=== PATIENT | female | born 1960 | race Caucasian/White ===

== ENCOUNTER 2018-04-13 09:27 | Outpatient (CLI) | payer BC ==
--- NOTE | 2018-04-13 13:49 | MRI ---
MRI RIGHT KNEE PERFORMED WITHOUT CONTRAST ENHANCEMENT: HISTORY: Medial knee pain. FINDINGS: The patient states the knee locks up on her, and she is unable to completely straighten her knee. Th e anterior as well as posterior cruciate ligaments are intact. The medial and lateral menisci have a normal shape and appearance. The medial and lateral collateral ligaments and the iliotibial band regions are unremarkable. There is a 12 to 13 mm articular body, which is directly anterior to the tibial attachment of the ACL and adjacent to Hoffa's fat pad with some edema change in adjacent Hoffa's fat. There is some articular cartilage fissuring of the patellar articular cartilage. The medial and late ral patellar retinaculum, as well as the quadriceps tendon, are normal. There is some minimal patell ar tendinosis noted. IMPRESSION: A 13 mm intraarticular body, seen directly anterior to the tibial insertion of the anterior cruciate ligament, associated with the Hoffa's fat pad with edema change in the Hoffa's fat pad. The two main considerations for this is does this represent some type of osteochondral body, although its signal characteristics are not entirely typical? It could represent an area of nodular synovitis, and assoc iated with adjacent edema changes within Hoffa's fat. It would probably be related to the patient's difficulty in extending or straightening her leg. POS: [facility]
== END 2018-04-13 09:28 | disposition home or self-care (01) ==
LOC: BICMRI 09:27
PROVIDERS: ATTEND Family Medicine
DX: Z12.31 Encounter for screening mammogram for malignant neoplasm of breast (principal); M23.91 Unspecified internal derangement of right knee; M25.561 Pain in right knee; R60.0 Localized edema
CPT/HCPCS: 77063; 77067

== ENCOUNTER 2018-05-08 16:37 | Outpatient (CLI) | payer BC ==
[2018-05-08 17:32] LABS: #Eosinphils 0.1 thou/uL (0.0-0.7); #Lymphocytes 1.5 thou/uL (1.20-3.40); #Monocytes 0.4 thou/uL (0.11-0.59); #Neutrophils 3.4 thou/uL (1.40-6.50); %Basophils 0.6 % (0.0-1.0); %Eosinophils 2.4 % (0.0-10.0); %Lymphocytes 26.9 % (21.0-51.0); %Monocytes 7.5 % (0.0-10.0); %Neutrophils 62.7 % (42.0-75.0); Hemoglobin 15.7 g/dL (12.0-16.0); Mean Corpuscular HGB CONC 31.9 g/dL (32.0-36.0); Mean Corpuscular Hemoglobin 28.4 pg (27.0-31.0); Mean Corpuscular Volume 89.2 fL (78.0-98.0); Mean Platelet Volume 8.1 fL (7.4-10.4); Platelet Count 280 thou/uL (130-400); RBC Distribution Width 11.6 % (11.5-14.5); Red Blood Cell (RBC) Count 5.54 mill/uL (4.20-5.40); White Blood Cell (WBC) Count 5.5 thou/uL (4.8-10.8)
[2018-05-08 18:01] LABS: Anion Gap 11 mmol/L (10-20); BUN (Urea Nitrogen) 13 mg/dL (9.8-20.1); Calc. Creatinine Clearance 0 mL/min (70-130); Calcium 9.8 mg/dL (7.8-10.44); Carbon Dioxide 27 mmol/L (22-29); Chloride 106 mmol/L (98-107); Estimated GFR-MDRD 73; Glucose 96 mg/dL (70-105); Potassium 3.9 mmol/L (3.5-5.1); Sodium 140 mmol/L (136-145)
== END 2018-05-08 16:38 | disposition home or self-care (01) ==
LOC: LABBT 16:37
PROVIDERS: ATTEND Orthopaedic Surgery
DX: Z01.818 Encounter for other preprocedural examination (principal); M23.41 Loose body in knee, right knee
CPT/HCPCS: 80048; 85025; 93005; 93010

== ENCOUNTER 2018-05-10 06:02 | Day surgery (SDC) | payer BC ==
[2018-05-08 16:54] VITALS: BMI 30.7
[2018-05-10] MEDS ORDERED: CEFAZOLIN 2 GM/50 ML BAG ONE (06:39)
[2018-05-10] MEDS ORDERED: Fentanyl 100 MCG/2 ML VIAL ONE (06:44)
[2018-05-10] MEDS ORDERED: Propofol 500 MG/50 ML VIAL ONE (07:00)
[2018-05-10] MEDS ORDERED: PROPOFOL 20 ML ONE ×2 (07:02→07:03)
[2018-05-10] MEDS ORDERED: Midazolam HCl 2 mg/2 ml Vial ONE (07:44)
--- NOTE | 2018-05-10 08:42 | OP ---
DATE OF PROCEDURE: 05/10/2018 PREOPERATIVE DIAGNOSIS: Right knee loose body anterior to the anterior cruciate ligament. POSTOPERATIVE DIAGNOSIS: Right knee loose body anterior to the anterior cruciate ligament. PROCEDURE PERFORMED: Right knee arthroscopy with removal of loose body. SURGEON: Jose Mariee M.D. OFFENDER JOB RETENTION SPECIALIST: None. BLOOD LOSS: Minimal. COMPLICATIONS: None. ANESTHESIA: She had general anesthetic as well as a local knee block. CONDITION: She went to recovery room in stable condition. INDICATIONS: This is a 58-year-old active female who comes in complaining of occasional pinching and catching in her knee and subsequent swelling. MRI scan showed her to have a loose body in the anter ior portion of the knee and at this time, she wished to have this surgically removed. DESCRIPTION OF PROCEDURE: After all appropriate consent forms were explained and signed, she was graham en back to the operating room and at this time was given general anesthetic. Once the level of anest hesia was appropriate, the tourniquet was placed on the right thigh. Leg was placed in an arthroscop ic leg cline. The limb was then prepped and draped in the standard surgical fashion. An inferolate ral portal was established and the scope was placed into the knee joint. Needle localization technAllylix ue was then used for medial working portal. Diagnostic arthroscopy commenced in the knee. The ACL a nd PCL were probed and found to be intact. The loose body was found anteriorly in the fat pad. The fat pad was debrided. Grasper was used to remove the loose body. There was a large gush of hematoma , which came out. This was cleaned out and the shaver was used to smooth down the bone on the end of the tibia. At this time, we started our normal knee arthroscopy. Medial compartment was evaluated and found to be intact, so was the lateral compartment. The patellofemoral joint showed the trochlea to be in good condition. There was a small amount of fissuring in the superior lateral portion of t he patella. There were no more loose bodies noted in the suprapatellar pouch or either gutter. At t his time, we went around the knee one more time making sure there were no more loose bodies. Scope w as then removed. Knee was drained. Portals were closed with simple nylon stitch. Bulky sterile yue ssing was applied and the tourniquet let down. Toes pinked up nicely. The patient was awakened. Kim mayfield was taken to the recovery room in stable condition. All counts were correct at the end of the case . She received preoperative IV antibiotics.
[2018-05-10] MEDS ORDERED: Metoclopramide HCl 10 MG/2 ML VIAL ONE (10:08)
[2018-05-10] MEDS ORDERED: Ketorolac Tromethamine 30 MG/ML VIAL ONE (10:08)
[2018-05-10] MEDS ORDERED: Ondansetron PF 4 MG/2 ML Vial ONE (10:08)
[2018-05-10] MEDS ORDERED: PROPOFOL 200 MG/20 ML VIAL ONE (10:08)
[2018-05-10] MEDS ORDERED: Dexamethasone 20 MG/5 ML VIAL ONE (10:08)
[2018-05-10] MEDS ORDERED: Lidocaine 1% PF 5 ML VIAL ONE (10:08)
[2018-05-10] MEDS ORDERED: Lidocaine 2% w/Epinephrine 1:200K 20 ML VIAL ONE (13:23)
[2018-05-10] MEDS ORDERED: Bupivacaine HCl 0.5%/Epinephrine 1:200,000/PF 30 ml Vial ONE (13:23)
== END 2018-05-10 10:30 | disposition home or self-care (01) ==
LOC: SDC 06:02
PROVIDERS: ATTEND Orthopaedic Surgery
PROC: 0SCC4ZZ Extirpation of Matter from Right Knee Joint, Percutaneous Endoscopic Approach (ICD-10-PCS; principal; 2018-05-10)
PROC: 0SBC4ZZ Excision of Right Knee Joint, Percutaneous Endoscopic Approach (ICD-10-PCS; 2018-05-10)
DX: M23.41 Loose body in knee, right knee (principal); E03.9 Hypothyroidism, unspecified; Z79.1 Long term (current) use of non-steroidal anti-inflammatories (NSAID); Z79.899 Other long term (current) drug therapy
CPT/HCPCS: G8978-GP-CJ; G8979-GP-CJ; G8980-GP-CJ; J0670; J1100; J1885; J2001; J2250; J2405; J2704; J2765; J3010

== ENCOUNTER 2018-06-08 12:29 | Outpatient (CLI) | payer BC | END 2018-06-08 12:30 | disposition home or self-care (01) | PROVIDERS: ATTEND Physician Assistant | DX: R06.02 Shortness of breath (principal) | CPT/HCPCS: 93017 ==

== ENCOUNTER 2018-09-16 00:39 | Emergency (ER) | payer BC ==
[2018-09-16 01:19] LABS: #Basophils 0.1 thou/uL (0.0-0.2); #Eosinphils 0.2 thou/uL (0.0-0.7); #Lymphocytes 2.2 thou/uL (1.20-3.40); #Monocytes 0.6 thou/uL (0.11-0.59); #Neutrophils 4.2 thou/uL (1.40-6.50); %Basophils 1.2 % (0.0-1.0); %Eosinophils 2.5 % (0.0-10.0); %Lymphocytes 30.1 % (21.0-51.0); %Monocytes 8.2 % (0.0-10.0); %Neutrophils 58.1 % (42.0-75.0); Hemoglobin 15.7 g/dL (12.0-16.0); Mean Corpuscular HGB CONC 33.3 g/dL (32.0-36.0); Mean Platelet Volume 8.5 fL (7.4-10.4); Platelet Count 247 thou/uL (130-400); RBC Distribution Width 11.8 % (11.5-14.5); Red Blood Cell (RBC) Count 5.24 mill/uL (4.20-5.40); White Blood Cell (WBC) Count 7.2 thou/uL (4.8-10.8)
[2018-09-16 01:20] LABS: Bilirubin Negative (Negative); Blood, Urine Large (Negative); Clarity CLOUDY (Clear); Glucose, Urine (Dipstick) Negative (Negative); Leukocyte Negative (Negative); Nitrite Negative (Negative); Protein, Urine (Dipstick) Trace mg/dL (Neg-Trace); Specific Gravity, Urine 1.025 (1.002-1.036); Urobilinogen 0.2 mg/dL (0.2-1.0); pH, Urine 5.5 (5.0-9.0)
[2018-09-16 01:22] LABS: Bacteria/HPF Rare-Few HPF (None Seen); Pathc Cast-AUWi Flag 1.36 (0-2.49)
[2018-09-16 01:27] LABS: Yeast-AUWi Flag 71.6 (0-25.0)
[2018-09-16 01:36] LABS: Renal Epithelial None Seen HPF (0-3); Transitional Epithelial NONE SEEN HPF (0-3)
[2018-09-16 01:37] LABS: Hyaline Casts/LPF NONE SEEN LPF (0-3 Hyaline); Yeast-All Forms None Seen HPF (None Seen)
[2018-09-16 01:41] LABS: ALT (SGPT) 31 U/L (8-55); AST (SGOT) 19 U/L (5-34); Albumin 4.5 g/dL (3.5-5.0); Alkaline Phosphatase 139 U/L (40-150); Anion Gap 14 mmol/L (10-20); BUN (Urea Nitrogen) 15 mg/dL (9.8-20.1); Bilirubin, Total 0.7 mg/dL (0.2-1.2); Calc. Creatinine Clearance 0 mL/min (70-130); Calcium 10.2 mg/dL (7.8-10.44); Carbon Dioxide 27 mmol/L (22-29); Chloride 107 mmol/L (98-107); Estimated GFR-MDRD 67; Globulin 2.6 g/dL (2.4-3.5); Glucose 130 mg/dL (70-105); Potassium 3.7 mmol/L (3.5-5.1); Protein, Total 7.1 g/dL (6.0-8.3); Sodium 144 mmol/L (136-145)
[2018-09-16] MEDS ORDERED: Ondansetron PF 4 MG/2 ML Vial ONE (01:43)
[2018-09-16] MEDS ORDERED: Ketorolac Tromethamine 30 MG/ML VIAL ONE (01:43)
[2018-09-16] MEDS ORDERED: Morphine 4 MG/ML VIAL ONE (02:53)
--- NOTE | 2018-09-16 08:07 | CT ---
CT ABDOMEN AND PELVIS NONCONTRAST: Date 09/16/18 INDICATION: Right flank pain, progressive in intensity. History of urolithiasis and dysuria. FINDINGS: Evidence of herniorrhaphy is seen at the right mid to lower abdomen. There is patchy, heterogeneous d ensity of the liver, which may be related to geographic areas of hepatic steatosis. At the right UVJ, a 3-4 mm calculus results in mild right hydroureteronephrosis with slight perinephric and periureter al inflammatory fat stranding. Nonobstructive left nephrolithiasis is present. There is colonic diver ticulosis. No significant pathology at the visualized lung bases. No acute osseous abnormalities. The re is a moderate sized hiatal hernia. Evaluation otherwise limited on the basis of noncontrast techni que. IMPRESSION: 1. Mildly obstructing 3-4 mm right UVJ calculus. 2. Nonobstructing left nephrolithiasis. 3. Probable hepatic steatosis, although incompletely assessed. Correlate with liver function enzymes and, if necessary, follow-up pre and postcontrast CT of abdomen may be obtained for further assessme nt. 4. Moderate sized hiatal hernia. POS: [facility]
== END 2018-09-16 04:16 | disposition home or self-care (01) ==
LOC: ERS 00:39
DX: N13.2 Hydronephrosis with renal and ureteral calculous obstruction (principal); E03.9 Hypothyroidism, unspecified; F32.9 Major depressive disorder, single episode, unspecified; Z79.899 Other long term (current) drug therapy
CPT/HCPCS: 74176; 80053; 81003; 81015; 85025; 96361; 96374; 96375; J1885; J2270; J2405

== ENCOUNTER 2018-09-27 06:58 | Day surgery (SDC) | payer BC ==
[2018-09-25 12:59] VITALS: BMI 32.9
[2018-09-27] MEDS ORDERED: Levofloxacin 500 mg/D5W 100 ml Premix Bag ONE (07:51)
--- NOTE | 2018-09-27 07:54 | RAD ---
XR Abdomen 1 View/KUB History: [Preop] Comparison: CT abdomen pelvis September 16, 2018 Findings: Evidence of prior ventral hernia repair. No dilated air-filled loops of large or small hamlet l. No definite calcifications are seen projecting over the renal shadows. Moderate facet arthrosis L4-5 and L5-S1. No dilated loops of large or small bowel. Impression: No definite nephrolithiasis is appreciated on this exam
[2018-09-27 08:23] LABS: INR-International Normal Ratio 0.9; PTT 28.2 SEC (22.9-36.1); Prothrombin Time 12.2 SEC (12.0-14.7)
[2018-09-27] MEDS ORDERED: Fentanyl 100 MCG/2 ML VIAL ONE ×3 (09:30→11:42)
[2018-09-27] MEDS ORDERED: Midazolam HCl 2 mg/2 ml Vial ONE (09:45)
[2018-09-27] MEDS ORDERED: Iothalamate Meglumine 60% 50 ML VIAL FS ONE (09:50)
[2018-09-27] MEDS ORDERED: SUGAMMADEX SODIUM 200 MG/2 ML VIAL ONE (10:32)
--- NOTE | 2018-09-27 10:57 | RAD ---
Exam: Intraoperative fluoroscopy for retrograde IVP COMPARISON: None HISTORY: Ureteral calculus FINDINGS: Single fluoroscopic view demonstrates a right-sided double-J stent which appears to be appr opriately positioned IMPRESSION: Fluoroscopy as above
[2018-09-27] MEDS ORDERED: Oxybutynin 5 MG TAB ONE (12:22)
[2018-09-27] MEDS ORDERED: Phenazopyridine HCl 97.5 MG TABLET ONE (12:22)
[2018-09-27] MEDS ORDERED: Morphine 4 MG/ML VIAL ONE (12:57)
[2018-09-27] MEDS ORDERED: Ketorolac Tromethamine 30 MG/ML VIAL ONE (13:03)
[2018-09-27] MEDS ORDERED: Morphine 2 MG/ML SYRINGE ONE (13:11)
[2018-09-27] MEDS ORDERED: Hyoscyamine Sulfate SL 0.125 mg Tablet SL SCH (13:15)
[2018-09-27] MEDS ORDERED: Hyoscyamine Sulfate SL 0.125 mg Tablet ONE ×2 (13:42)
[2018-09-27] MEDS ORDERED: HYDROcodone/Acetaminophen 5/325 mg Tablet ONE (14:30)
[2018-09-27] MEDS ORDERED: Glycopyrrolate 0.2 MG/ML 5 ML SYRINGE ONE (14:48)
[2018-09-27] MEDS ORDERED: Lidocaine 1% PF 5 ML VIAL ONE (14:48)
[2018-09-27] MEDS ORDERED: Rocuronium Bromide 10 MG/ML (10ML VIAL) ONE (14:48)
[2018-09-27] MEDS ORDERED: PROPOFOL 200 MG/20 ML VIAL ONE (14:48)
[2018-09-27] MEDS ORDERED: Dexamethasone 20 MG/5 ML VIAL ONE (14:48)
[2018-09-27] MEDS ORDERED: Ondansetron PF 4 MG/2 ML Vial ONE (14:48)
--- NOTE | 2018-09-27 17:22 | OP ---
DATE OF PROCEDURE: 09/27/2018 PREOPERATIVE DIAGNOSES: 1. A 58-year-old female, presented with right UVJ stone with non-progression persistent pain, 4 mm. 2. Left punctate nephrolithiasis. POSTOPERATIVE DIAGNOSES: 1. A 58-year-old female, presented with right UVJ stone with non-progression persistent pain, 4 mm. 2. Left punctate nephrolithiasis. PROCEDURES PERFORMED: Cystoscopy, right retrograde pyelogram, 6 x 26 double-J ureteral stent on Dangler, diagnostic ureteroscopy. ANESTHESIA: LMA, general. COMPLICATIONS: None apparent. DISPOSITION: To recovery room in stable condition. SPECIMEN: None. INTRAOPERATIVE FINDINGS: No evidence of right ureteral calculi. INDICATIONS FOR PROCEDURE AND HISTORY: Ms. Gates is a 58-year-old female, who presented to my office as a work-in and as she presented with persistent discomfort of a right UVJ stone. The pain began approximately two weeks ago, characterized as pressure-like sensation in the lower quadrant, which is difficulty sitting still. Her urine culture and renal function, stable. Due to persistent stone, she desired to proceed with ureteroscopy, laser lithotripsy, and stone extraction. Risks and complications of procedure were reviewed with her in detail including, but are not limited to, bleeding, pain, infection, injury to adjacent organs, urosepsis, stricture formation. All questions were answered to her satisfaction. She desired to proceed. DESCRIPTION OF PROCEDURE: After an informed consent was signed, the patient was taken to the operating room, placed in the dorsal lithotomy position with the genital area prepped and draped in the usual surgical sterile fashion. A 21- Indonesian cystoscope was utilized for cystoscopy. Upon entering the bladder, I did not visualize any past stone debris. Bilateral UOs are located in normal orthotopic position. At this time, we performed the retrograde pyelogram, which I did not see any evidence of hydronephrosis nor obvious filling defect of concern. To ensure that she does not have persistent stone nidus that she continues to have, irritative voiding symptoms of frequency and urgency, a diagnostic ureteroscopy was performed. A 0.35 Sensor wire was passed into the right upper pole and a rigid ureteroscope was able to be passed atraumatically without significant issues. The scope was passed to the level of the mid ureter and I did not see any stone nidus of concern. At this time, a 6 x 26 double-J ureteral stent was passed on a . She tolerated the procedure well and wire was removed. The bladder completely emptied. She was discharged with a short course of [place] #20, one to two p.o. q.8 hours p.r.n., VESIcare 5 mg one p.o. daily for 5 days, AZO, ciprofloxacin for 3 days. As she passed her stone, she will return to clinic this Tuesday to have her stent removed on . Job ID: [id number] [facility]
== END 2018-09-27 15:15 | disposition home or self-care (01) ==
LOC: SDC 06:58
PROVIDERS: ATTEND Urology
PROC: 0T778DZ Dilation of Left Ureter with Intraluminal Device, Via Natural or Artificial Opening Endoscopic (ICD-10-PCS; principal; 2018-09-27)
DX: R10.30 Lower abdominal pain, unspecified (principal); E03.9 Hypothyroidism, unspecified; E83.52 Hypercalcemia; R35.0 Frequency of micturition; K59.04 Chronic idiopathic constipation; Z79.899 Other long term (current) drug therapy; Z87.442 Personal history of urinary calculi
CPT/HCPCS: 36415; 71046; 74018; 74420; 80048; 81001; 85025; 85610; 85730; 87086; 93005; 93010; C1758; C1769; J1100; J1885; J1956; J2001; J2250; J2270; J2405; J2704; J3010; Q9961

== ENCOUNTER 2019-02-21 08:16 | Outpatient (CLI) | payer BC ==
--- NOTE | 2019-02-21 09:35 | MRI ---
EXAM: Right ankle MRI without contrast: HISTORY: Right ankle pain COMPARISON: None. FINDINGS: Multiplanar, multisequence MRI examination of the ankle is performed. The flexor, extensor, and peroneus tendons are intact. Poorly defined anterior talofibular ligament at the fibular attachment no evidence for prior sprain. The Achilles tendon and plantar fascia are unremarkable. Sinus Tarsi and spring ligament regions are unremarkable. Medial talar dome subchondral cystic focus measuring 0.6 x 1.1 cm evidence for an osteochondral lesio n. Minimal subchondral intraosseous cystic changes of the navicular medial cuneiform bones. Small focus of intraosseous cystic change in the calcaneus adjacent to the sinus Tarsi. No evidence for abnormal marrow signal. IMPRESSION: Osteochondral subchondral cystic focus involving the medial talar dome evidence for an osteochondral lesion. Several foci of intraosseous cystic change. Poorly defined anterior talofibular ligament and the fibular attachment evidence for prior sprain.
== END 2019-02-21 08:17 | disposition home or self-care (01) ==
LOC: BICMRI 08:16
PROVIDERS: ATTEND Orthopaedic Surgery
DX: M25.571 Pain in right ankle and joints of right foot (principal)

== ENCOUNTER 2019-04-11 08:48 | Outpatient (CLI) | payer BC ==
--- NOTE | 2019-04-11 11:04 | ULT ---
BILATERAL RENAL ULTRASOUND: Date: 04/11/19 INDICATION: History of stones. COMPARISON: None. FINDINGS: The right kidney measures 10.2 x 5.4 cm. The left kidney measures 10.2 x 4.7 cm. Pre-void bladder vol ume was 43 mL. No focal renal lesion or hydronephrosis is demonstrated. IMPRESSION: No focal renal lesion or hydronephrosis demonstrated. POS: [facility]
--- NOTE | 2019-04-11 11:09 | RAD ---
SUPINE ABDOMEN: HISTORY: Kidney stones. COMPARISON: 09/27/2018 FINDINGS: Prominent stool in the colon obscures both renal outlines. No definite renal calculi identified. POS: [facility]
== END 2019-04-11 08:49 | disposition home or self-care (01) ==
LOC: BICULT 08:48
PROVIDERS: ATTEND Urology
DX: N20.0 Calculus of kidney (principal); Z87.442 Personal history of urinary calculi
CPT/HCPCS: 36415; 74018; 76770; 80048; 81001; 83970; 84550; 87086

== ENCOUNTER 2019-04-12 07:55 | Outpatient (CLI) | payer BC ==
--- NOTE | 2019-04-12 10:18 | CT ---
CT ABDOMEN AND PELVIS WITH ORAL AND IV CONTRAST: Date: 04/12/19 HISTORY: Change in bowel habits. Abdominal pain. FINDINGS: There is mild dependent change in the right lung base. A moderate size hiatal hernia is present. The liver demonstrates decreased attenuation compared to the spleen consistent with fatty infiltration. T he spleen, pancreas, adrenal glands, and kidneys are normal. The patient is post cholecystectomy, hysterectomy, and abdominal wall repair. No free air, free fluid , or lymphadenopathy seen in the abdomen or pelvis. The small bowel loops are not abnormally dilated. There is sigmoid diverticulosis without diverticulitis. There are mild degenerative changes in the s pine. IMPRESSION: 1. Hiatal hernia. 2. Fatty liver. 3. Sigmoid diverticulosis. POS: [facility]
== END 2019-04-12 07:56 | disposition home or self-care (01) ==
LOC: CT 07:55
PROVIDERS: ATTEND Internal Medicine Gastroenterology
DX: R07.89 Other chest pain (principal); R19.4 Change in bowel habit; R11.2 Nausea with vomiting, unspecified; K76.0 Fatty (change of) liver, not elsewhere classified; K57.30 Diverticulosis of large intestine without perforation or abscess without bleeding; K44.9 Diaphragmatic hernia without obstruction or gangrene
CPT/HCPCS: 74177

== ENCOUNTER 2019-04-30 09:05 | Outpatient (CLI) | payer BC ==
--- NOTE | 2019-04-30 13:09 | NM ---
NUCLEAR MEDICINE PARATHYROID SCAN: HISTORY: Hyperparathyroidism. TECHNIQUE: Patient was administered 25.3 mCi of technetium 99m sestamibi intravenously. Immediate, 1 hour, 2 td r delayed planar images were performed, along with SPECT imaging. FINDINGS: Planar images do not demonstrate any significant radiotracer retention in the 2 hour images to sugges t a parathyroid adenoma. SPECT images do demonstrate a subtle area of increased uptake along the left tracheoesophageal groove. This may represent a parathyroid adenoma. Better interrogation with a parathyroid CT is recommended. IMPRESSION: Possible left sided parathyroid adenoma. Parathyroid CT is recommended. CODE T Transcribed Date/Time: 04/30/2019 2:25 PM
== END 2019-04-30 09:06 | disposition home or self-care (01) ==
LOC: NM 09:05
PROVIDERS: ATTEND Specialist
DX: E21.3 Hyperparathyroidism, unspecified (principal)
CPT/HCPCS: 36415; 78072; 84439; 84443; A9500

== ENCOUNTER 2019-05-14 10:49 | Outpatient (CLI) | payer BC ==
[2019-05-14] MEDS ORDERED: Iopamidol-370 76% 500 ML 1 ML ONE (11:23)
--- NOTE | 2019-05-14 15:00 | CT ---
CT NECK WITH AND WITHOUT CONTRAST: (PARATHYROID PROTOCOL) DATE: 05/14/19 HISTORY: 59-year-old female with hyperparathyroidism. TECHNIQUE: Precontrast scan, 25 second postcontrast scan, and 60 second postcontrast scan, performed from subcar inal mediastinal level to inferior aspect of the orbits. Coronal and sagittal reconstructions. FINDINGS: Unfortunately, this patient's thyroid gland has precontrast attenuation that has relatively low iodin e content, such that the density is not much higher than that of adjacent muscle. This makes it diffi cult to distinguish thyroid tissue or thyroid nodules from potential parathyroid adenomas. Abutting the superior edge of the left lobe of the thyroid gland, there is an approximately 0.7 x 0.4 x 0.7 cm enhancing piece of tissue (enhancement similar to that of adjacent thyroid parenchyma), jus t lateral to the left tracheoesophageal groove (coronal images 53 of 107, series 5 and 9; sagittal im ages 50 of 111, series 6 and 10; axial images 56 of 114, series 3, 2, and 7). It is uncertain whether this is a superior process of thyroid tissue or a parathyroid adenoma. There are no other potential candidates for parathyroid adenoma on this scan. IMPRESSION: Small 7 mm process of tissue protruding superiorly from the upper pole of the left lobe of the thyroi d gland, which is a low to intermediate candidate for parathyroid adenoma. POS: [facility]
== END 2019-05-14 10:50 | disposition home or self-care (01) ==
LOC: BICCT 10:49
PROVIDERS: ATTEND Specialist
DX: E21.3 Hyperparathyroidism, unspecified (principal)
CPT/HCPCS: 70492; Q9967

== ENCOUNTER 2019-07-06 12:03 | Outpatient (CLI) | payer BC ==
--- NOTE | 2019-07-06 13:43 | MMO ---
Bilateral MAMMO Bilat Screen DDI+ANNETTE. CLINICAL HISTORY: Patient is 59 years old and is seen for screening. The patient has no family history of breast cancer. The patient has no personal history of cancer. The patient has a history of bilateral Breast reduction in 2006. VIEWS: The views performed were: bilateral craniocaudal with tomosynthesis and bilateral mediolateral oblique with tomosynthesis. FILMS COMPARED: The present examination has been compared to prior imaging studies performed at [facility] on 05/01/2014 and 04/13/2018, at [facility] on 08/20/2008, and at [facility] on 12/12/2012. This study has been interpreted with the assistance of computer-aided detection. MAMMOGRAM FINDINGS: There are scattered fibroglandular densities. There are stable benign appearing calcifications seen in both breasts. There are no suspicious masses, suspicious calcifications, or new areas of architectural distortion. IMPRESSION: THERE IS NO MAMMOGRAPHIC EVIDENCE OF MALIGNANCY. A ROUTINE FOLLOW-UP MAMMOGRAM IN 1 YEAR IS RECOMMENDED. THE RESULTS OF THIS EXAM WERE SENT TO THE PATIENT. ACR BI-RADS Category 2 - Benign finding MAMMOGRAPHY NOTE: 1. A negative mammogram report should not delay a biopsy if a dominant of clinically suspicious mass is present. 2. Approximately 10% to 15% of breast cancers are not detected by mammography. 3. Adenosis and dense breasts may obscure an underlying neoplasm. Reported by: ADITYA LUNDBERG MD Electonically Signed: [id number]
== END 2019-07-06 12:04 | disposition home or self-care (01) ==
LOC: BICMAMMO 12:03
PROVIDERS: ATTEND Family Medicine
DX: Z12.31 Encounter for screening mammogram for malignant neoplasm of breast (principal)
CPT/HCPCS: 77063; 77067

== ENCOUNTER 2019-07-26 08:06 | Outpatient (CLI) | payer BC ==
--- NOTE | 2019-07-26 12:41 | RAD ---
UPPER GI: DATE: 07/26/2019 HISTORY: Abdominal pain. History of a Nemo fundoplication. FINDINGS: The patient ingested barium and crystals without difficulty. Esophageal mucosa is normal. There is na rrowing to the distal esophagus related to a Nemo fundoplication. The narrowing is slightly supradi aphragmatic as the wrapped portion of the Nemo is now above the level of the esophageal hiatus. The wrapped portion is not excluding this portion of the stomach. On lateral images, this portion of the wrap does demonstrate oral contrast within it. No reflux is demonstrated. The stomach otherwise show s no intrinsic or extrinsic abnormalities. Duodenal bulb and c-loop are unremarkable. IMPRESSION: Patient is status post previous Nemo fundoplication. There is still some narrowing to the distal es ophagus when patient is upright, but the wrapped portion of the stomach is now above the hemidiaphrag m and essentially is acting the same as a hiatal hernia with oral contrast getting into the wrapped p ortion of the stomach which is now above the level of the diaphragm. No reflux demonstrated. No other findings. POS: [facility]
== END 2019-07-26 08:07 | disposition home or self-care (01) ==
LOC: RAD 08:06
PROVIDERS: ATTEND Internal Medicine Gastroenterology
DX: K44.9 Diaphragmatic hernia without obstruction or gangrene (principal); R07.9 Chest pain, unspecified; K22.2 Esophageal obstruction; Z98.890 Other specified postprocedural states
CPT/HCPCS: 74246

== ENCOUNTER 2019-09-03 13:48 | Outpatient (CLI) | payer BC ==
[2019-09-03 15:43] LABS: #Basophils 0.1 thou/uL (0.0-0.2); #Eosinphils 0.2 thou/uL (0.0-0.7); #Lymphocytes 1.5 thou/uL (1.20-3.40); #Monocytes 0.4 thou/uL (0.11-0.59); %Basophils 0.8 % (0.0-1.0); %Eosinophils 2.2 % (0.0-10.0); %Lymphocytes 20.9 % (21.0-51.0); %Monocytes 6.2 % (0.0-10.0); %Neutrophils 69.9 % (42.0-75.0); Hemoglobin 16.3 g/dL (12.0-16.0); Mean Corpuscular HGB CONC 33.8 g/dL (32.0-36.0); Mean Corpuscular Hemoglobin 30.6 pg (27.0-31.0); Mean Corpuscular Volume 90.4 fL (78.0-98.0); Mean Platelet Volume 8.8 fL (7.4-10.4); Platelet Count 273 thou/uL (130-400); RBC Distribution Width 11.8 % (11.5-14.5); Red Blood Cell (RBC) Count 5.32 mill/uL (4.20-5.40); White Blood Cell (WBC) Count 7.1 thou/uL (4.8-10.8)
[2019-09-03 16:09] LABS: Anion Gap 15 mmol/L (10-20); BUN (Urea Nitrogen) 13 mg/dL (9.8-20.1); Calc. Creatinine Clearance 0 mL/min (70-130); Calcium 9.4 mg/dL (7.8-10.44); Carbon Dioxide 22 mmol/L (22-29); Chloride 108 mmol/L (98-107); Estimated GFR-MDRD 70; Glucose 109 mg/dL (70-105); Potassium 3.7 mmol/L (3.5-5.1); Sodium 141 mmol/L (136-145)
--- NOTE | 2019-09-04 11:44 | EKG ---
Test Reason : Blood Pressure : / mmHG Vent. Rate : 077 BPM Atrial Rate : 077 BPM P-R Int : 140 ms QRS Dur : 076 ms QT Int : 380 ms P-R-T Axes : 048 047 005 degrees QTc Int : 430 ms Normal sinus rhythm Cannot rule out Anterior infarct , age undetermined Abnormal ECG When compared with ECG of 25-SEP-2018 13:33, No significant change was found Confirmed by JOAO DUPREE, SKevin ([id number]) on 09/04/2019 11:44:05 AM Referred By: EMILY Confirmed By:DR. Tiny SHEPHERD MD
== END 2019-09-03 13:49 | disposition home or self-care (01) ==
LOC: LABBT 13:48
PROVIDERS: ATTEND Specialist
DX: Z01.818 Encounter for other preprocedural examination (principal); K44.9 Diaphragmatic hernia without obstruction or gangrene; Z98.890 Other specified postprocedural states
CPT/HCPCS: 80048; 85025; 93005; 93010

== ENCOUNTER 2019-09-04 08:07 | Day surgery (SDC) | payer BC ==
[2019-09-03 12:18] VITALS: BMI 31.2
[2019-09-04] MEDS ORDERED: Acetaminophen 500 MG TAB ONE (08:39)
[2019-09-04] MEDS ORDERED: Ketorolac Tromethamine 30 MG/ML VIAL ONE (08:39)
[2019-09-04] MEDS ORDERED: Fentanyl 100 MCG/2 ML VIAL ONE ×4 (09:30→15:27)
[2019-09-04] MEDS ORDERED: Bupivacaine PF 0.5% 30 ML VIAL ONE (09:31)
[2019-09-04] MEDS ORDERED: Lidocaine 1% w/Epinephrine 1:100K 20 ML VIAL ONE (09:31)
[2019-09-04] MEDS ORDERED: EPHEDRINE 25 MG/5 ML SYRINGE ONE (10:31)
[2019-09-04] MEDS ORDERED: Ondansetron PF 4 MG/2 ML Vial ONE (10:31)
[2019-09-04] MEDS ORDERED: PHENYLEPHRINE-NS 100 MCG/ML 10 ML SYRINGE ONE (10:31)
[2019-09-04] MEDS ORDERED: Rocuronium Bromide 10 MG/ML (10ML VIAL) ONE (10:31)
[2019-09-04] MEDS ORDERED: Lidocaine 1% PF 5 ML VIAL ONE (10:31)
[2019-09-04] MEDS ORDERED: Dexamethasone 20 MG/5 ML VIAL ONE (10:31)
[2019-09-04] MEDS ORDERED: PROPOFOL 200 MG/20 ML VIAL ONE (10:31)
[2019-09-04] MEDS ORDERED: HYDROmorphone 2 MG/ML VIAL SLOW IVP PRN (10:58)
[2019-09-04] MEDS ORDERED: Meperidine HCl/PF 25 MG/ML VIAL SLOW IVP PRN (10:58)
[2019-09-04] MEDS ORDERED: Ondansetron HCl/PF 4 MG/2 ML Vial IVP PRN (10:58)
[2019-09-04] MEDS ORDERED: Ketorolac Tromethamine 30 MG/ML VIAL IVP PRN (10:58)
[2019-09-04] MEDS ORDERED: Promethazine HCl 25 MG/ML VIAL SLOW IVP PRN (10:58)
[2019-09-04] MEDS ORDERED: Promethazine HCl 25 MG/ML VIAL IM PRN ×2 (10:58→17:04)
[2019-09-04] MEDS ORDERED: hydrALAZINE 20 MG/ML VIAL SLOW IVP PRN (17:04)
[2019-09-04] MEDS ORDERED: Morphine 4 MG/ML VIAL SLOW IVP PRN (17:04)
[2019-09-04] MEDS ORDERED: diphenhydrAMINE 50 MG/ML VIAL IVP PRN (17:04)
[2019-09-04] MEDS ORDERED: Hydrocodone-Acetamin 15 ML UDCUP PO PRN (17:04)
[2019-09-04] MEDS ORDERED: Morphine 2 MG/ML SYRINGE SLOW IVP PRN (17:04)
[2019-09-04] MEDS ORDERED: Ondansetron PF 4 MG/2 ML Vial IVP PRN (17:04)
[2019-09-04] MEDS ORDERED: Dextrose 50% Abboject 50 ML SYRINGE SLOW IVP PRN (17:04)
[2019-09-04] MEDS ORDERED: Dextrose 5% in Water 1,000 ML IV PRN (17:04)
[2019-09-04] MEDS: Ketorolac Tromethamine 30 MG/ML VIAL IVP SCH ×2 (18:20→23:31)
[2019-09-04] MEDS: D5 1/2 NS w/20 mEq KCL 1,000 ML IV SCH (18:21)
[2019-09-05] MEDS: D5 1/2 NS w/20 mEq KCL 1,000 ML IV SCH ×3 (01:52→12:30)
[2019-09-05 05:37] LABS: #Lymphocytes 0.6 thou/uL (1.20-3.40); #Monocytes 0.9 thou/uL (0.11-0.59); #Neutrophils 10.6 thou/uL (1.40-6.50); %Eosinophils 0.1 % (0.0-10.0); %Monocytes 7.4 % (0.0-10.0); %Neutrophils 87.5 % (42.0-75.0); Hemoglobin 13.8 g/dL (12.0-16.0); Mean Corpuscular HGB CONC 33.6 g/dL (32.0-36.0); Mean Corpuscular Hemoglobin 30.5 pg (27.0-31.0); Mean Corpuscular Volume 90.7 fL (78.0-98.0); Mean Platelet Volume 8.2 fL (7.4-10.4); Platelet Count 212 thou/uL (130-400); RBC Distribution Width 11.8 % (11.5-14.5); Red Blood Cell (RBC) Count 4.52 mill/uL (4.20-5.40); White Blood Cell (WBC) Count 12.1 thou/uL (4.8-10.8)
[2019-09-05] MEDS: Ketorolac Tromethamine 30 MG/ML VIAL IVP SCH ×4 (05:51→23:20)
[2019-09-05 05:57] LABS: Anion Gap 10 mmol/L (10-20); BUN (Urea Nitrogen) 8 mg/dL (9.8-20.1); Calc. Creatinine Clearance 103 mL/min (70-130); Calcium 8.9 mg/dL (7.8-10.44); Carbon Dioxide 27 mmol/L (22-29); Chloride 107 mmol/L (98-107); Estimated GFR-MDRD 74; Glucose 116 mg/dL (70-105); Potassium 4.4 mmol/L (3.5-5.1); Sodium 140 mmol/L (136-145)
--- NOTE | 2019-09-05 08:42 | RAD ---
EXAM: Single contrast Upper GI HISTORY: Status post gastric sleeve procedure. Evaluate for enteric leak. COMPARISON: None FINDINGS: A single contrast upper GI was performed. Esophageal motility is normal. No mucosal lesions are seen in the esophagus. No extrinsic compression on the esophagus is seen. No hiatal hernia. No gastroesophageal reflux. Patient is status post gastric sleeve. The contrast passes through the stomach into the duodenum without difficulty. The duodenum is normal in appearance without focal abnormality. IMPRESSION: Status post gastric sleeve without evidence of complication.
[2019-09-05] MEDS: Pantoprazole 40 MG VIAL IVP SCH (08:50)
[2019-09-05] MEDS: Enoxaparin Sodium 40 MG/0.4 ML SYRINGE SC SCH (08:50)
[2019-09-05] MEDS ORDERED: FLU VACC QS2019-20(6MOS UP)/PF 60 MCG/0.5 ML SYRINGE IM ONE (09:00)
--- NOTE | 2019-09-05 13:59 | PRG ---
DATE OF SERVICE: 09/05/2019 SUBJECTIVE: Ms. Gates is postoperative day #1 from a redo of her previous Nemo fundoplication. She had an obvious hiatal hernia and extensive scarring that led to a fairly lengthy surgery. She today tells me that she is tolerating her liquids better than she did yesterday. Yesterday, she felt nauseated most of the time. Early this morning, she had an upper GI swallow, which demonstrated the contrast passing through the area of the wrap. There is appropriate constriction at the level of the wrap, but no obstruction and no leak. There is no evidence of recurrent hiatal hernia. OBJECTIVE: VITAL SIGNS: She is afebrile. Pulse is in the 70s. Blood pressure is 100/66. LUNGS: Clear to auscultation. ABDOMEN: Soft and minimally tender. Incisions are all healing nicely with Dermabond intact. LABORATORY DATA: White blood cell count slightly elevated at 12.1, hemoglobin is 13.8, and platelet count is 212. Chemistries are essentially unremarkable. Her drain output is about 45 mL from all day yesterday and it is an appropriate serosanguineous fluid. ASSESSMENT AND PLAN: She is stable following her surgery. It did not seem that she was taking enough liquids that she would be stable for discharge home. I therefore will watch her for another day in the hospital. I will decrease her IV fluids down to 60 mL/h and encourage her diet with clear and full liquids. Assuming she remains stable, I would plan discharge home in the morning. I will also provide liquid hydrocodone elixir for her to use as necessary. Job ID: [id number]
[2019-09-05] MEDS ORDERED: Levothyroxine Sodium 112 MCG TAB PO SCH (19:00)
[2019-09-05] MEDS ORDERED: Levothyroxine Sodium 25 MCG TAB PO SCH (19:00)
[2019-09-06] MEDS: Ketorolac Tromethamine 30 MG/ML VIAL IVP SCH (05:40)
[2019-09-06] MEDS: D5 1/2 NS w/20 mEq KCL 1,000 ML IV SCH (05:45)
[2019-09-06] MEDS ORDERED: Levothyroxine Sodium 112 MCG TAB PO SCH (06:00)
[2019-09-06] MEDS ORDERED: Levothyroxine Sodium 25 MCG TAB PO SCH (06:00)
[2019-09-06 07:44] VITALS: BP 122/77; TEMP 99.4
[2019-09-06] MEDS: Enoxaparin Sodium 40 MG/0.4 ML SYRINGE SC SCH (08:14)
[2019-09-06] MEDS: Pantoprazole 40 MG VIAL IVP SCH (08:15)
[2019-09-06] MEDS ORDERED: Non-Formulary Item 1 EACH (Levothyroxine Sodium [Synthroid] 1 TAB) PO SCH (09:00)
[2019-09-06] MEDS ORDERED: DESVENLAFAXINE 50 MG PO SCH (09:00)
[2019-09-06] MEDS ORDERED: Venlafaxine HCl XR 75 MG CAP PO SCH (09:00)
[2019-09-06] MEDS ORDERED: LINACLOTIDE PO SCH (09:00)
[2019-09-06] MEDS ORDERED: Acetaminophen/Codeine 30-300mg Tablet PO SCH (10:45)
--- NOTE | 2019-09-06 21:27 | OP ---
DATE OF PROCEDURE: 09/04/2019 PREOPERATIVE DIAGNOSIS: Recurrent hiatal hernia following previous laparoscopic Nemo fundoplication over a decade in the past. POSTOPERATIVE DIAGNOSIS: Recurrent hiatal hernia following previous laparoscopic Nemo fundoplication over a decade in the past with extensive inflammation and adhesions from prior surgery. PROCEDURE PERFORMED: Redo laparoscopic Nemo fundoplication , placement of mesh, repair of gastrotomy, placement of intraabdominal drain. ANESTHESIA: General endotracheal. INDICATIONS: The patient is a 59-year-old female. She has a history of laparoscopic Nemo fundoplication by another surgeon in the remote past. She has recently had progressive symptoms of dysphagia, epigastric discomfort, chest pressure. She notes that the symptoms are progressive. Recent evaluation with endoscopy and upper GI showed evidence of recurrent hiatal hernia. CT scan shows no other etiology for the potential symptoms. I had a lengthy conversation with her regarding the potential difficulty of this surgery and the potential conversion to an open procedure. She felt that her symptoms were intolerable and she was enthusiastic to proceed. DESCRIPTION OF OPERATION: Informed consent was obtained. The patient was taken to the operating room, where general endotracheal anesthesia was obtained with the patient in supine position. She was then placed in the split leg position. Abdomen was prepped with ChloraPrep and draped in sterile fashion. Local anesthetic was infiltrated using a mixture of 0.25% Marcaine with 1% lidocaine with epinephrine. A 5 mm epigastric incision was created through which a Veress needle was passed into the peritoneal cavity and pneumoperitoneum was established using carbon dioxide up to pressure of 15 mmHg. A 5 mm trocar port was passed through the same incision and laparoscopic camera was passed through this port. Under direct vision, 4 additional ports were placed including bilateral subcostal 5 mm ports, left epigastric 11 mm port, and right epigastric 5 mm port. Attention was turned to the upper abdomen. There were significant adhesions between the posterior aspect of the liver and the stomach. I began to lyse these using hook electrocautery. Although, great care was taken in taking down these adhesions. As I ascended along the posterior aspect of the liver, at one point, I recognized that I had created a gastrotomy in what proved to have been part of the wrap from her previous fundoplication. The dissection was continued and I eventually was able to clear the posterior aspect of the liver and was able to place a triangle snake retractor to elevate the left lobe of the liver. The retractor was held in place with a Brown's arm. I then began an arduous dissection. There was almost no plane visible on either the right or left side of the stomach, between the stomach and the diaphragmatic crura. With careful dissection using sharp dissection, hook electrocautery and blunt dissection, I was eventually able to define the right and left diaphragmatic crura and begin to dissect along the stomach up into the mediastinum. There was clearly wrap from prior fundoplication still intact, but this would also clearly herniated through a recurrent hiatal hernia up into the mediastinum. Progress then was a lengthy dissection at the end of which I had clearly defined the hiatus circumferentially, including the confluence of the posterior aspect of the crura. I dissected the wrap and was able to pass a Kimi drain around the distal esophagus in order to retract it down into the abdomen. I had mobilized the wrap somewhat from the anterior aspect of this esophagus. Although the wrap was intact, I could not see that the two sides of the gastric wrap were actually still attached. At some point, I had requested Anesthesia to pass the bougie down into the stomach to help to calibrate the esophagus and to help identification of anatomy. For reasons that are not clear, this was unable to be done. I had attempted several maneuvers to facilitate this, but could not make it work and therefore I utilized the gastroscope and myself passed the scope through the esophagus and down into the stomach. I left this in place with the light turned off for the remainder of the case as I was uncertain if I would be able to still pass a bougie. After the anatomy was all thoroughly defined, I turned my attention to the hiatus. I mobilized some scar tissue bilaterally on the diaphragm to try to gain appropriate laxity. I then closed the posterior aspect of the hiatus with 3 interrupted sutures of 0 Bralon placed with the Endo stitch device. Each of these sutures were passed through, felt pledgets on either side of the crura to hopefully minimize tissue breakdown. There appeared to be adequate laxity of the hiatus around the esophagus, recognizing that a full-size bougie was not in place. I then obtained a 6 x 8 cm Strattice mesh. This was trimmed to appropriate size to accommodate the esophagus and passed into the abdominal cavity. It was positioned with the long axis resting horizontally and the short axis resting vertically. I placed 3 sutures of 2-0 Ethibond between the crura and the biologic mesh to secure it in place. These were placed at the upper right and upper left aspects of the mesh and in the posterior midline involving the crural closure. Thereafter, I obtained a Tisseel and used this to affix the remainder of the mesh. When the mesh was all well-approximated, I turned my attention to wrap. I have mentioned that one gastrotomy had occurred on the anterior aspect of the right side of the wrap. During the course of mobilization, a second gastrotomy had also occurred also on the right side of the wrap. These were each repaired with sutures of 2-0 Vicryl. I closed the superior defect with 2 interrupted sutures of 2-0 Vicryl. The inferior defect, which was larger, was repaired with 2 [id number] sutures of 2-0 Vicryl. Both defects appeared to be completely closed. I turned my attention then to the wrap. As I mentioned, it did not appear that the two sides of the wrap were approximated and I therefore placed two sutures about a centimeter and a half apart between upper and lower aspects of the wrap and incorporated bites of the anterior aspect of the esophagus with each of these. The sutures were again 0 Bralon. I finally placed two Collar sutures between the upper aspect of the wrap and the crura at about 11 o'clock and 130 radian. Following placement of these, the wrap appeared to be well fixed and the hiatus appeared to be appropriately closed. A #19 round fluted drain was obtained and brought out through the right lateral port site, where it was secured with a 3-0 nylon suture. The area was thoroughly irrigated and all irrigant was aspirated. The drain was placed across the area under the left lobe of the liver. The triangle retractor was removed. The fascial defect at the left epigastrium was closed with 0 Vicryl suture using a GraNee needle. All ports and instruments were removed under direct vision. Pneumoperitoneum was carefully evacuated. 0.25% Marcaine with epinephrine was infiltrated at each port site and skin edges approximated with 4-0 Monocryl subcuticular suture. Dermabond was placed externally. There were no complications. The patient tolerated the procedure well and was taken to recovery room in stable condition. Job ID: [id number]
--- NOTE | 2019-09-07 13:24 | DIS ---
DATE OF ADMISSION: 09/04/2019 DATE OF DISCHARGE: 09/06/2019 ADMISSION DIAGNOSIS: Recurrent hiatal hernia. POSTOPERATIVE DIAGNOSIS: Recurrent hiatal hernia. OPERATION PERFORMED: Laparoscopic repair of recurrent hiatal hernia with mesh and esophagogastroduodenoscopy. ADMISSION HISTORY: The patient is a 59-year-old white female. She had undergone previous laparoscopic Nemo fundoplication in 1999. She recently had symptoms of recurrence. Secondary to the extent of her symptoms, she has elected to proceed with repair of the recurrent hernia. HOSPITAL COURSE: She presented on the day of admission. She underwent an uncomplicated but lengthy and fairly difficult surgery. She did well following the operation. She was able to tolerate liquids and advance her diet uneventfully. By postoperative day #2, she was tolerating a full liquid diet without nausea or vomiting. She noted that she had no symptoms of reflux. Her pain was well controlled and she was stable for discharge. She was discharged home with instructions to follow up with myself in 2 weeks and was given a prescription for [place] to use as necessary. Job ID: [id number]
== END 2019-09-06 12:02 | disposition home or self-care (01) ==
LOC: SDC 08:07 → SURG A 16:59 → SDC 09-06 12:02
PROVIDERS: ATTEND Specialist
PROC: 0DV44ZZ Restriction of Esophagogastric Junction, Percutaneous Endoscopic Approach (ICD-10-PCS; principal; 2019-09-06)
DX: K44.9 Diaphragmatic hernia without obstruction or gangrene (principal); E03.9 Hypothyroidism, unspecified; Z79.899 Other long term (current) drug therapy
CPT/HCPCS: 36415; 74240; 80048; 85025; C9113; J0690; J1100; J1650; J1885; J2001; J2270; J2405; J2704; J3010; Q4130; S0020

== ENCOUNTER 2020-02-26 09:54 | Outpatient (CLI) | payer BC ==
--- NOTE | 2020-02-26 10:26 | ULT ---
Renal sonogram HISTORY: Renal calculus. FINDINGS: On today's exam, the right kidney is 10.2 cm length and the left is 11.2 cm. Each has a nor mal appearance without evidence of mass, stone, or hydronephrosis. The tiny calcification of the left kidney on prior CT is not visible on the current sonogram. Urinary bladder has normal appearance. IMPRESSION : No abnormalities are demonstrated.
--- NOTE | 2020-02-26 10:32 | RAD ---
Abdomen one view HISTORY: Renal stone. FINDINGS: Large amount of stool throughout the colon. Metallic clips over the right upper quadrant mariee ggesting prior cholecystectomy. Small metallic coils overlying the right abdomen from hernia mesh. Tiny linear metallic density over the left upper quadrant likely represents bowel content. Renal outlines are mostly obscured on the left and partially on the right. No urinary tract calcifications are apparent.
== END 2020-02-26 09:55 | disposition home or self-care (01) ==
LOC: BICULT 09:54
PROVIDERS: ATTEND Urology
DX: N20.0 Calculus of kidney (principal); E83.52 Hypercalcemia; R79.89 Other specified abnormal findings of blood chemistry
CPT/HCPCS: 36415; 74018; 76770; 80048; 81001; 83970; 84550; 87086

== ENCOUNTER 2020-03-25 09:32 | Outpatient (CLI) | payer BC ==
--- NOTE | 2020-03-25 14:00 | NM ---
EXAM: NM Parathyrd Planar W/Spect CT PROVIDED CLINICAL HISTORY: Hyperparathyroidism, unspecified COMPARISON: 04/30/[address] May on 05/14/2019 FINDINGS: Planar imaging with immediate, 1 hour and 2 hour delayed images are obtained. SPECT imaging was also performed. No definite localized area of increased uptake of radiotracer is seen on the planar images localized to either lobe of the thyroid gland. On SPECT imaging, there is vague area of asymmetric increased uptake of radiotracer again present along the left tracheoesophageal groove in region of left lobe of the thyroid gland without definitive localization to a specific nodule. Similar findings were seen on prior exam. The CT neck performed on 05/14/2019 noted a small 7 mm focus of tissue extending super iorly from the superior pole left lobe of the thyroid gland which was interpreted to represent a low to intermediate candidate for parathyroid adenoma. IMPRESSION: Equivocal study for left-sided parathyroid adenoma with vague generalized area of increased uptake on the left without definitive focal localized area of uptake. Findings were reviewed with Dr. Mora who is agreement with the above findings and assessment.
== END 2020-03-25 09:33 | disposition home or self-care (01) ==
LOC: NM 09:32
PROVIDERS: ATTEND Specialist
DX: E21.3 Hyperparathyroidism, unspecified (principal); D35.1 Benign neoplasm of parathyroid gland; R94.8 Abnormal results of function studies of other organs and systems
CPT/HCPCS: 78072; A9500

== ENCOUNTER 2020-07-16 12:30 | Outpatient (CLI) | payer BC ==
--- NOTE | 2020-07-16 13:28 | MRI ---
MR the lumbar spine without contrast INDICATION: Lumbar spondylolysis COMPARISON: CT of the abdomen and pelvis dated April 12, 2019 TECHNIQUE: Multiplanar multisequence MR images were obtained of lumbar spine without IV contrast. FINDINGS: Bone marrow: Bone marrow signal intensity appears within normal limits. Distal spinal cord and conus: Normal. The conus seen to terminate at L1. Visualized retroperitoneum and paraspinal soft tissues: Normal. Vertebral levels: L5-S1: There is broad-based bulge with facet hypertrophy but no appreciable central canal or neural f oraminal narrowing.. L4-5: There is a broad-based bulge with facet hypertrophy inducing mild bilateral neural foraminal na rrowing. L3-4: No appreciable central canal or neuroforaminal narrowing. L2-3: No appreciable central canal or neuroforaminal narrowing. L1-L2: No appreciable central canal or neuroforaminal narrowing. T12-L1: No appreciable central canal or neuroforaminal narrowing. IMPRESSION: 1. Mild bilateral neural foraminal narrowing at L4-5. 2. Mild lumbar spondylosis. 3. No visible pars defect is grossly evident.
--- NOTE | 2020-07-16 14:11 | MRI ---
MR of the Left hip without contrast INDICATION: History of Left hip pain; trochanteric bursitis of the left hip COMPARISON: None. TECHNIQUE: Multiplanar multisequence MR images were obtained of the Left hip without IV contrast. FINDINGS: Bone marrow signal intensity: Normal. No evidence for fracture. Musculature: There is mild muscular atrophy of the left gluteus minimus. The remaining hip girdle mus culature appears within normal limits. The left gluteus minimus tendon appears highly atretic, near its attachment point, suspicious for partial thickness articular surface tear. There is fluid distend ing the left subgluteus minimus and subgluteus medius trochanteric bursa. The gluteus medius tendon is intact. The rectus femoris and iliopsoas appear intact. There is a partial-thickness tear involvin g the left hamstring origins. There is also mild muscular edema of the quadratus femoris muscle. Bursa: Trochanteric bursitis as above. No iliopsoas bursitis. Joint: No hip effusion is evident. No para labral cyst is identified. Nerves: Normal. Intrapelvic contents: There are scattered colonic diverticula. The uterus appears be surgically absen t. The adnexa are not definitely seen. No free fluid or lymphadenopathy is grossly evident. IMPRESSION: 1. Findings suspicious for a partial-thickness articular surface tear of the left gluteus minimus ten don near its attachment . There is [id number] left trochanteric bursitis. 2. Partial-thickness tear of the left hamstring origins. 3. Muscular edema of the left quadratus femoris muscle may reflect muscle strain or myositis related to impingement.
== END 2020-07-16 12:31 | disposition home or self-care (01) ==
LOC: BICMRI 12:30
PROVIDERS: ATTEND Orthopaedic Surgery
DX: M43.06 Spondylolysis, lumbar region (principal); M70.62 Trochanteric bursitis, left hip; S76.312A Strain of muscle, fascia and tendon of the posterior muscle group at thigh level, left thigh, initial encounter; R60.0 Localized edema; M47.816 Spondylosis without myelopathy or radiculopathy, lumbar region; M48.061 Spinal stenosis, lumbar region without neurogenic claudication
CPT/HCPCS: 72148

== ENCOUNTER 2020-09-02 08:59 | Outpatient (CLI) | payer BC | END 2020-09-02 09:00 | disposition home or self-care (01) | LOC: BICMAMMO 08:59 | PROVIDERS: ATTEND Physician Assistant | DX: Z12.31 Encounter for screening mammogram for malignant neoplasm of breast (principal); Z13.820 Encounter for screening for osteoporosis; E21.3 Hyperparathyroidism, unspecified; Z98.890 Other specified postprocedural states; M85.852 Other specified disorders of bone density and structure, left thigh | CPT/HCPCS: 77063; 77067; 77080 ==

== ENCOUNTER 2020-11-06 08:31 | Outpatient (CLI) | payer BC | END 2020-11-06 08:32 | disposition home or self-care (01) | LOC: NM 08:31 | PROVIDERS: ATTEND Otolaryngology Plastic Surgery within the Head & Neck | DX: E21.3 Hyperparathyroidism, unspecified (principal) | CPT/HCPCS: 70492; 78072; A9500 ==

== ENCOUNTER 2021-05-07 12:18 | Outpatient (CLI) | payer BC | END 2021-05-07 12:19 | disposition home or self-care (01) | LOC: BICRAD 12:18 | PROVIDERS: ATTEND Physician Assistant Medical | DX: K59.00 Constipation, unspecified (principal) | CPT/HCPCS: 74018 ==

== ENCOUNTER 2021-10-28 08:03 | Outpatient (CLI) | payer BC | END 2021-10-28 08:04 | disposition home or self-care (01) | LOC: BICMAMMO 08:03 | PROVIDERS: ATTEND Physician Assistant | DX: Z12.31 Encounter for screening mammogram for malignant neoplasm of breast (principal); Z98.890 Other specified postprocedural states; N64.89 Other specified disorders of breast | CPT/HCPCS: 77063; 77067 ==

== ENCOUNTER 2021-11-02 13:26 | Outpatient (CLI) | payer BC | END 2021-11-02 13:27 | disposition home or self-care (01) | LOC: BICMAMMO 13:26 | PROVIDERS: ATTEND Physician Assistant | DX: N64.89 Other specified disorders of breast (principal) | CPT/HCPCS: G0279 ==

== ENCOUNTER 2022-04-15 13:54 | Outpatient (CLI) | payer BC | END 2022-04-15 13:55 | disposition home or self-care (01) | LOC: MRI 13:54 | PROVIDERS: ATTEND Nurse Practitioner Family | DX: M51.16 Intervertebral disc disorders with radiculopathy, lumbar region (principal) | CPT/HCPCS: 72148 ==

== ENCOUNTER 2022-07-16 07:32 | Outpatient (CLI) | payer BC | END 2022-07-16 07:33 | disposition home or self-care (01) | LOC: TBSIIMAG 07:32 | PROVIDERS: ATTEND Orthopaedic Surgery | DX: M93.971 Osteochondropathy, unspecified, right ankle and foot (principal); M89.9 Disorder of bone, unspecified ==

== ENCOUNTER 2023-04-28 13:02 | Outpatient (CLI) | payer BC | END 2023-04-28 13:03 | disposition home or self-care (01) | LOC: MRI 13:02 | PROVIDERS: ATTEND Specialist | DX: M47.24 Other spondylosis with radiculopathy, thoracic region (principal); K44.9 Diaphragmatic hernia without obstruction or gangrene | CPT/HCPCS: 72146 ==

== ENCOUNTER 2024-04-20 12:31 | Outpatient (CLI) | payer BC ==
[2024-04-20] MEDS ORDERED: Iopamidol 370 76% 100 ML VIAL ONE (14:41)
== END 2024-04-20 12:32 | disposition home or self-care (01) ==
LOC: CT 12:31
PROVIDERS: ATTEND Family Medicine
DX: R59.0 Localized enlarged lymph nodes (principal)
CPT/HCPCS: 36415; 70491; 82565; Q9967